=== PATIENT | female | born 1985 | race Caucasian/White ===

== ENCOUNTER 2017-08-19 06:20 | Emergency (ER) | payer OTHER ==
[~2017-08-19] VITALS: Ht 161.3 cm; Wt 94.3 kg
[2017-08-19 06:24] VITALS: Ht 161.3 cm; Wt 94.3 kg
[2017-08-19] MEDS ORDERED: PRENTAB26 PO (06:44)
[2017-08-19] MEDS ORDERED: HYCODAN 60ML BOTTLE HOMEPACK PO STA (07:05)
[2017-08-19] MEDS ORDERED: AMOXICILLIN 250 MG CAP PO STA (07:05)
[2017-08-19] MEDS ORDERED: ALBUTEROL HFA 8 GM INHALER INH STA (07:05)
[2017-08-19] MEDS ORDERED: AMOX500C3 PO (07:10)
[2017-08-19] MEDS ORDERED: HYDR5SYP11 PO (07:10)
--- NOTE | 2017-08-19 07:18 | EMERGENCY ROOM VISIT NOTE ---
History Report prepared by Waldo: Karl Erickson Under the Supervision of: Dr. Nathaniel Sanchez M.D. First contact with patient: 06:48 Chief Complaint: SORETHROAT Stated Complaint: THROAT SWOLLEN, GLANDS SORE, DIFFICULTY BREATHING History of Present Illness The patient is a 32 year old female who presents to the Emergency Room with complaints of constant sore throat beginning a week ago. She also complains of swelling to her anterior neck and shortness of breath. The patient states that her symptoms worsened last night. She has a history of frequent sinus infections , but denies recent antibiotic use. She is a smoker. The patient has taken Tylenol for her pain. She has an albuterol inhaler at home but she has not been using it recently. She has a history of ear infections as a child. Source of History: patient Onset: One week ago Position: throat Quality: other (sore) Timing: constant Associated Symptoms: + SOB Note: Additional symptoms: anterior neck swelling. Review of Systems See HPI for pertinent positives & negatives. A total of 10 systems reviewed and were otherwise negative. Past Medical & Surgical Medical Problems: (1) Biliary colic (2) Cholelithiasis (3) Right upper quadrant abdominal pain (4) Vaginal delivery Family History Patient reports no known family medical history. Social History Smoking Status: Current Every Day Smoker Alcohol Use: occasionally Drug Use: none Marital Status: Housing Status: lives with family Current/Historical Medications Scheduled Amoxicillin (Amoxil), 500 MG PO TID Multivit/Min/Iron/Fol Ac/Pren ( Vitamin), 1 TAB PO DAILY Scheduled PRN Hydrocodone W/ Homatropine (Hycodan 5/1.5MG 5 Ml), 5 ML PO HS PRN for Pain Allergies Coded Allergies: Olives (Verified Allergy, Intermediate, EMESIS (BLACK OLIVES), 08/19/17) Bismuth Subsalicylate (Verified Allergy, Mild, RASH, 08/19/17) NAUSEA/VOMITING Physical Exam Vital Signs Date Time Temp Pulse Resp B/P (MAP) Pulse Ox O2 Delivery O2 Flow Rate FiO2 08/19/17 07:30 37.0 82 20 124/83 97 08/19/17 06:31 98 Room Air 08/19/17 06:24 36.9 91 18 131/96 98 Room Air Physical Exam GENERAL: Awake, alert, well-appearing, in no acute distress HENT: Normocephalic, atraumatic. Oropharynx unremarkable. Left ear drum is swollen and fluid filled consistent with otitis media. EYES: Normal conjunctiva. Sclera non-icteric. NECK: Supple. No nuchal rigidity. FROM. No JVD. RESPIRATORY: Clear to auscultation. CARDIAC: Regular rate, normal rhythm. Extremities warm and well perfused. Pulses equal. ABDOMEN: Soft, non-distended. No tenderness to palpation. No rebound or guarding. No masses. RECTAL: Deferred. MUSCULOSKELETAL: Chest examination reveals no tenderness. The back is symmetrical on inspection without obvious abnormality. There is no CVA tenderness to palpation. No joint edema. LOWER EXTREMITIES: Calves are equal size bilaterally and non-tender. No edema. No discoloration. NEURO: Normal sensorium. No sensory or motor deficits noted. SKIN: No rash or jaundice noted. Medical Decision & Procedures Medications Administered Medications (Trade) Dose Ordered Sig/Marcellus Route Start Time Stop Time Status Last Admin Dose Admin Albuterol (Ventolin Hfa Inhaler) 2 puffs NOW STAT INH 08/19/17 07:05 08/19/17 07:06 DC 08/19/17 07:26 2 PUFFS Amoxicillin (Amoxil Cap) 500 mg NOW STAT PO 08/19/17 07:05 08/19/17 07:06 DC 08/19/17 07:26 500 MG Hydrocodone Bit/ Homatropine Methylb (Hycodan Elix Homepack 5/1.5MG/ 5ML) 1 homepack UD STAT PO 08/19/17 07:05 08/19/17 07:06 DC 08/19/17 07:26 1 HOMEPACK ED Course 0700: Past medical records reviewed. The patient was evaluated in room A10. A complete history and physical examination was performed. 0705: Ordered Hycodan Elix Homepack 5/1.5 mg/5 mL homepack PO, Amoxil Cap 500 mg PO, Ventolin Hfa Inhaler 2 puffs INH. 0715: Upon reexamination the patient is resting comfortably. I discussed results and treatment plan with the patient. She verbalizes agreement and understanding. The patient is ready for discharge. Medical Decision Differential diagnosis: Etiologies such as viral syndrome, tonsillitis, streptococcal pharyngitis, mononucleosis, peritonsillar abscess, retropharyngeal abscess, otitis, pneumonia , influenza, as well as others were entertained. This is a 32-year-old female presents to emergency department complaining of pain to her ear. Patient appears to have an otitis media on examination. she has no evidence of meningitis or encephalitis on examination.she is also wheezing therefore she was given an inhaler here in the emergency department and started on amoxicillin. Stressed the need for follow-up of the patient's primary care physician. Patient was in agreement with the treatment plan. Medication Reconcilliation Current Medication List: was personally reviewed by me Blood Pressure Screening Patient's blood pressure: Normal blood pressure Blood pressure disposition: Did not require urgent referral Impression Primary Impression: Otitis media Scribe Attestation The scribe's documentation has been prepared under my direction and personally reviewed by me in its entirety. I confirm that the note above accurately reflects all work, treatment, procedures, and medical decision making performed by me. Departure Information Dispostion Home / Self-Care Prescriptions Amoxicillin (AMOXIL) 500 Mg Cap 500 MG PO TID, #30 CAP Prov: Nathaniel Sanchez MD 08/19/17 Hydrocodone W/ Homatropine (HYCODAN 5/1.5MG 5 ML) 1 Syp Syp 5 ML PO HS Y for Pain, #120 ML Prov: Nathaniel Sanchez MD 08/19/17 Referrals Darrian Boyer M.D.([facility]) (PCP) Forms HOME CARE DOCUMENTATION FORM, IMPORTANT VISIT INFORMATION Patient Instructions ED Otitis Media Serous Adult, [facility], Tips Cardiovascular Quit Smoking, Withdrawal Smoking Dorris Additional Instructions Use inhaler twice every 6 hours Take 1000 mg Tylenol every 6 hours Take 600 mg Ibuprofen every 6 hours Take Hycodan for breakthrough pain. You received narcotic or benzodiazepene medication while in the emergency room today. This is an addictive medication that may cause drowziness as well as constipation. Do not drive, operate heavy machinery, or drink alcohol under the influence of this medication. You have been examined and treated today on an emergency basis only. This is not a substitute for, or an effort to provide, complete comprehensive medical care. It is impossible to recognize and treat all injuries or illnesses in a single emergency department visit. It is therefore important that you follow up closely with Dr Boyer. Call as soon as possible for an appointment. Thank you for your time and consideration. I look forward to speaking with you again soon. Please don't hesitate to call us if you have any questions. Problem Qualifiers Primary Impression: Otitis media Otitis media type: unspecified Chronicity: acute Qualified Codes: H66.90 - Otitis media, unspecified, unspecified ear
[2017-08-19 07:30] VITALS: BP 124/83; PULSE 82; TEMP 37; O2SAT 97
== END 2017-08-19 07:33 | disposition home or self-care (01) ==
LOC: C.EDB 06:21 → C.EDA 07:33
DX: H66.92 Otitis media, unspecified, left ear (principal); J02.9 Acute pharyngitis, unspecified; R06.02 Shortness of breath; F17.200 Nicotine dependence, unspecified, uncomplicated; Z87.19 Personal history of other diseases of the digestive system; Z91.018 Allergy to other foods; Z88.8 Allergy status to other drugs, medicaments and biological substances

== ENCOUNTER 2018-09-18 07:18 | Inpatient (IN) ==
[2018-09-18] MEDS ORDERED: LACTATED RINGER'S 1,000 ML IV PRN (17:21)
[2018-09-18] MEDS ORDERED: DINOPROSTONE 10 MG INSERT PV ONE (17:21)
[2018-09-18] MEDS ORDERED: OXYTOCIN 30 UNITS/500 ML BAG IV PRN (17:21)
--- NOTE | 2018-09-18 17:29 | History & Physical Report ---
Date of Service September 18, 2018 Assessment & Plan (1) Post-dates : 33 yo at 40.5 wks, IOL VSS Afebrile FHR reassuring, GBS negative Cervix unfavorable Plan admit, monitor, Cervical ripening with Cervidil All questions were answered History of Present Illness Chief Complaint: Induction of labor Primary Care Provider: Darrian Boyer MD Patient is a 33 yo at 40.5 wks, scheduled IOL for postdates No complaints No ctxs/ LOF/VB +FM Her has been complicated by 1) h/o anomaly in 2007, terminated at [facility] at 20wks Had MFM consultation with this 2) Smoker 3) Obesity Allergies Allergy/AdvReac Type Severity Reaction Status Date / Time olive extract Allergy Intermediate EMESIS Verified 06/15/18 18:10 (BLACK OLIVES) bismuth subsalicylate Allergy Mild RASH Verified 06/15/18 18:10 Home Medications Home Medications Medication Instructions Recorded Confirmed Type PNV cmb#95-ferrous fumarate-FA 1 tab PO DAILY 07/31/18 07/31/18 History [] albuterol sulfate 2 puff INHALATION Q6H PRN 07/31/18 07/31/18 History nifedipine 10 mg PO Q4H #40 cap 07/31/18 Rx Patient History Medical History Tooth disorder Surgical removal of teeth, alveoplasty with extraction 08/31/2014 06/09/2007[place]nd [place] [facility] [place] severe spina bifida and multiple other deformities Depression Hx of depression with cutting in 2004 Surgical History Hx of cholecystectomy (~06/29/15) Hx of myringotomy Family History Grandmother (Paternal) Cancer Mother Diabetes Grandfather (Maternal) Diabetes Grandfather (Paternal) Diabetes Social History Preferred Language: Guamanian Communication Ability: Effective Rn Advice Required: No Beliefs That Will Affect Care: None marital status: Current Living Situation: Spouse and Family Other Information That Helps Us Care for You: No Feels Safe at Home: Yes Smoking Status: Current every day smoker Hx Alcohol Use: No Hx Substance Use: No OB History As per HPI and 3 FT 's SUPPORT DIRECTOR History No h/o STD's, no GC/ Chlamydia, HSV Review of Systems All systems reviewed & are unremarkable except as noted in HPI & below Physical Exam Vital Signs (Past 24 Hours): Last Vital Signs Pulse 79 09/18/18 16:35 Resp 18 09/18/18 16:35 BP 126/67 09/18/18 16:35 Constitutional: WD/WN, vitals as above well nourished, + obese and comfortable Gastrointestinal (Abdomen): Abd: Soft, NT gravid Genitourinary: Cervix: ight 3 cm/ 30%/ -4, ballotable head Monitoring External Monitor NST: Reactive Tocodynamometer No ctxs
[2018-09-18 17:46] LABS: Hematocrit (blood only) 33.4 % (37-47); Hemoglobin 11.4 g/dL (12.0-16.0); Mean Corpuscular Volume 91.5 fL (80-100); Mean Platelet Volume 8.6 fL (7.4-10.4); Platelet Count 243 K/uL (130-400); RDW Coefficient of Variation 13.9 % (11.5-14.5); RDW Standard Deviation 46.2 fL (36.4-46.3); Red Blood Count 3.65 M/uL (4.2-5.4); White Blood Count 9.21 K/uL (4.8-10.8)
[2018-09-18 18:00] LABS: Mean Corpuscular Hgb Conc 34.1 g/dL (32-36)
[2018-09-18] MEDS ORDERED: ONDANSETRON INJ 2 MG/ML 2 ML VIAL IV PRN (18:25)
[2018-09-18] MEDS ORDERED: CALCIUM CARBONATE 500 MG CHEWABLE TAB PO PRN (18:25)
[2018-09-18] MEDS ORDERED: BUTORPHANOL TARTRATE 2 MG/ML VIAL IV PRN (18:25)
--- NOTE | 2018-09-18 18:25 | Obstetrical Progress Note ---
Date of Service September 18, 2018 Subjective Cervidil is placed in posterior fornix Continue to monitor Physical Exam Vital Signs (Past 24 Hours): Last Vital Signs Temp 36.7 C 09/18/18 16:35 Pulse 79 09/18/18 16:35 Resp 18 09/18/18 16:35 BP 126/67 09/18/18 16:35
--- NOTE | 2018-09-19 06:48 | Obstetrical Progress Note ---
Date of Service September 19, 2018 Subjective Attempted to see her but she was in showed She slept all night, mild cramps per her nurse Cervidil was removed Plan to feed breakfast and recheck her cervix and continue with IOL Will sign out to Dr. Kovacs Physical Exam Vital Signs (Past 24 Hours): Last Vital Signs Temp 36.9 C 09/19/18 02:46 Pulse 68 09/19/18 02:46 Resp 18 09/19/18 02:46 BP 106/55 L 09/19/18 02:46
[2018-09-19] MEDS ORDERED: LACTATED RINGER'S 1,000 ML IV PRN ×2 (08:34→17:37)
[2018-09-19] MEDS ORDERED: OXYTOCIN 30 UNITS/500 ML BAG IV PRN ×2 (08:34→19:08)
[2018-09-19] MEDS: LACTATED RINGER'S 1,000 ML IV SCH ×4 (09:10→18:40)
[2018-09-19] MEDS ORDERED: BUPIVACAINE 0.25% 30 ML VIAL ONE (10:12)
[2018-09-19] MEDS ORDERED: ePHEDrine sulfate 50 MG/ML AMP ONE (10:12)
[2018-09-19] MEDS ORDERED: fentaNYL citrate 100 MCG/2 ML VIAL ONE (10:12)
[2018-09-19] MEDS ORDERED: fentaNYL 2MCG/ML ROPIV 1.25MG/ML 100 ML BAG EPI ONE (10:13)
--- NOTE | 2018-09-19 11:23 | Anesthesiology Consultation ---
Date of Service September 19, 2018 Assessment & Plan (1) Encounter for pre-operative examination: Chart Review Chart Review: Acceptable Risk for Surgery and Patient NOT seen in Pre Admission Testing Consults Requested none History Height/Weight Height: 5 ft 3 in Weight: 97.976 kg Allergies Allergy/AdvReac Type Severity Reaction Status Date / Time olive extract Allergy Intermediate EMESIS Verified 06/15/18 18:10 (BLACK OLIVES) bismuth subsalicylate Allergy Mild RASH Verified 06/15/18 18:10 Medications Home Medications Medication Instructions Recorded Confirmed Last Taken albuterol sulfate 2 puff INHALATION QID PRN 09/18/18 09/18/18 Unknown vit no.[id number]-[id number] 1 tab PO DAILY 09/18/18 09/18/18 09/17/18 18:00 [ Vitamin] Active Medications Generic Name Dose Route Start Last Admin Trade Name Freq PRN Reason Stop Dose Admin Lactated Ringer's 1,000 mls @ 150 mls/hr 09/18/18 17:30 09/19/18 10:53 Lr IV 09/20/18 17:29 150 mls/hr .Q6H40M APOLINAR Administration Oxytocin 30 units in 500 mls @ 4 mls/hr 09/19/18 08:34 09/19/18 09:49 Pitocin IV 09/21/18 08:33 0.24 units/hr .Q24H PRN 4 mls/hr Labor Induction/Augmentation Titration Protocol 0.24 UNITS/HR Past Medical History Medical History Tooth disorder Surgical removal of teeth, alveoplasty with extraction 08/31/2014 [place] teeth removed 06/09/2007-2nd trimester termination at [facility] [place], baby had severe spina bifida and multiple other deformities Depression Hx of depression with cutting in 2004 Past Family History Family History Grandmother (Paternal) Cancer Mother Diabetes Grandfather (Maternal) Diabetes Grandfather (Paternal) Diabetes Past Surgical History Surgical History Hx of cholecystectomy (~06/29/15) Hx of myringotomy Social History Smoking Status: Current every day smoker tobacco type: cigarettes Smoking cigarettes per day: 8 Do You Dip or Chew Tobacco: No Hx Alcohol Use: No Hx Substance Use: No substance use type: does not use Physical Exam Vital Signs Last Vital Signs Temp 36.5 C 09/19/18 11:12 Pulse 64 09/19/18 11:20 Resp 16 09/19/18 11:16 BP 122/64 09/19/18 11:20 Pulse Ox 99 09/19/18 11:19 Testing Laboratory Results 09/18/18 17:35 Blood Type A Positive 09/18/18 17:35 Antibody Screen NEGATIVE 09/18/18 17:35
[2018-09-19] MEDS ORDERED: fentaNYL 2MCG/ML ROPIV 1.25MG/ML 100 ML BAG EPI PRN (17:37)
[2018-09-19] MEDS ORDERED: NALOXONE HCL 1 MG in SODIUM CHLORIDE 0.9% 1000ML 1,000 ML IV PRN (17:37)
[2018-09-19] MEDS ORDERED: ePHEDrine sulfate 50 MG/ML AMP IV PRN (17:37)
[2018-09-19] MEDS ORDERED: ONDANSETRON INJ 2 MG/ML 2 ML VIAL IV PRN (17:37)
[2018-09-19] MEDS ORDERED: DiphenhydrAMINE HCL 50 MG/ML VIAL IV PRN (17:37)
[2018-09-19] MEDS ORDERED: NALOXONE HCL 0.4 MG/1 ML VIAL/CARP IV PRN (17:37)
[2018-09-19] MEDS ORDERED: NALBUPHINE HCL INJ 10 MG/ML AMP IV PRN (17:37)
[2018-09-19] MEDS ORDERED: NURSING DECISION MEDICATION ONE (17:41)
[2018-09-19] MEDS ORDERED: BISACODYL 10 MG SUPP PR PRN (19:08)
[2018-09-19] MEDS ORDERED: ACETAMINOPHEN 325 MG TAB PO PRN (19:08)
[2018-09-19] MEDS ORDERED: OXYCODONE/ACETAMINOPHEN 5mg/325mg TAB PO PRN (19:08)
[2018-09-19] MEDS ORDERED: BENZOCAINE 20% AER SPR 82.5 GM CAN EXT PRN (19:08)
[2018-09-19] MEDS ORDERED: ACETAMINOPHEN W/CODEINE #3 1 TAB PO PRN (19:08)
[2018-09-19] MEDS ORDERED: DIPHTHERIA/TETANUS/PERTUSSIS 0.5 ML SYR/VIAL IM ONE (19:08)
[2018-09-19] MEDS ORDERED: SUPERCREAM 0.870% 15 GM JAR EXT PRN (19:08)
[2018-09-19] MEDS ORDERED: HYDROCORTISONE ACETATE 25 MG SUPP PR PRN (19:08)
[2018-09-19] MEDS: IBUPROFEN 600 MG TAB PO PRN (21:13)
[2018-09-19] MEDS: DOCUSATE SODIUM 100 MG CAP PO SCH (21:13)
--- NOTE | 2018-09-19 22:19 | Anesthesia Procedure Note ---
Date of Service September 19, 2018 Anesthesia Post Epidural Note Vital Signs Vital Signs: Temp Pulse Resp BP Pulse Ox 36.8 C 70 18 128/83 96 09/19/18 21:35 09/19/18 21:35 09/19/18 21:35 09/19/18 21:35 09/19/18 21:35 Pain Intensity Bilateral Abdomen: Pain Intensity: 1 Notes Mental Status: alert / awake / arousable and participated in evaluation Nausea / Vomiting: adequately controlled Pain: adequately controlled Airway Patency, RR, SpO2: stable & adequate BP & HR: stable & adequate Hydration State: stable & adequate Neuraxial Anesthesia: was administered and sensory block is resolving Anesthetic Complications: no major complications apparent and Pt Satisfied with anesthetic care Epidural: Removed without complications and With tip intact
--- NOTE | 2018-09-20 00:31 | Delivery Summary ---
DATE OF OPERATION: 09/19/2018 She is a 33-year-old 5, para 4. Blood type is A positive, group B strep negative. Due date 09/13/2018. She was admitted for induction of labor secondary to postdate. She had a Cervidil tape. Cervidil tape was removed and I came early in the morning. Then we switched her to Pitocin. We obtained a good regular labor pattern with the Pitocin. We eventually ruptured her membranes when she was about 4-5 cm. Fluid was clear at this time. She requested and received epidural anesthesia. She obtained good pain relief. She eventually went to full dilatation. We had to start cutting back on the Pitocin because of a nonreassuring heart rate tracing eventually stopped it altogether, placed her on mask oxygen. We were able to get the heart rate up to about between contractions. We allowed her to push out a live female infant via direct occiput anterior position over an intact perineum. was suctioned through the mouth and the nose. Cord was clamped, cut by the father. Cord blood was taken. With IV Pitocin running, the placenta was removed intact. Inspection of the perineum revealed no lacerations. Hemostasis was good. Estimated blood loss of was 200 mL, 1 and 5 minute Apgars were 8 and 9 respectively. The patient tolerated her procedure well and left the delivery room in good condition. I attest to the content of the Intraoperative Record and any orders documented therein. Any exception s are noted below.
[2018-09-20 06:17] LABS: Hemoglobin 11.1 g/dL (12.0-16.0); Mean Corpuscular Hgb Conc 33.6 g/dL (32-36); Mean Corpuscular Volume 93.5 fL (80-100); Mean Platelet Volume 8.8 fL (7.4-10.4); Platelet Count 228 K/uL (130-400); RDW Coefficient of Variation 14.1 % (11.5-14.5); RDW Standard Deviation 47.9 fL (36.4-46.3); Red Blood Count 3.53 M/uL (4.2-5.4); White Blood Count 11.52 K/uL (4.8-10.8)
[2018-09-20] MEDS: IBUPROFEN 600 MG TAB PO PRN (07:03)
[2018-09-20] MEDS: DOCUSATE SODIUM 100 MG CAP PO SCH (08:08)
[2018-09-20] MEDS: ACETAMINOPHEN 325 MG TAB PO PRN ×3 (08:08→18:27)
[2018-09-20] MEDS ORDERED: PRENATAL VITAMIN 1 TAB PO SCH (09:00)
[2018-09-20] MEDS: LACTATED RINGER'S 1,000 ML IV SCH (10:00)
--- NOTE | 2018-09-20 11:51 | Obstetrical Progress Note ---
Date of Service September 20, 2018 Physical Exam Vital Signs (Past 24 Hours): Last Vital Signs Temp 36.4 C L 09/20/18 08:00 Pulse 62 09/20/18 08:00 Resp 20 09/20/18 08:00 BP 125/84 09/20/18 08:00 Pulse Ox 98 09/20/18 03:30 Physical Exam: abdomen soft and non tender vaginal bleeding scant to moderate ambulating well no calf tenderness
[2018-09-20] MEDS ORDERED: BISACODYL 5 MG TABEC PO SCH (20:00)
== END 2018-09-20 20:38 | disposition home or self-care (01) | DRG 807 ==
LOC: 4S1 16:25 → 4S2 09-19 21:29